=== PATIENT | female | born 1950 | race Caucasian/White ===

== ENCOUNTER 2019-01-15 00:07 | Outpatient (CLI) | payer BC ==
[2019-01-15 10:13] LABS: #Basophils 0.1 thou/uL (0.0-0.2); #Eosinphils 0.2 thou/uL (0.0-0.7); #Lymphocytes 1.9 thou/uL (1.20-3.40); #Monocytes 0.6 thou/uL (0.11-0.59); #Neutrophils 4.5 thou/uL (1.40-6.50); %Lymphocytes 25.7 % (21.0-51.0); %Monocytes 8.2 % (0.0-10.0); %Neutrophils 62.2 % (42.0-75.0); Hemoglobin 13.8 g/dL (12.0-16.0); Mean Corpuscular HGB CONC 33.6 g/dL (32.0-36.0); Mean Corpuscular Hemoglobin 29.7 pg (27.0-31.0); Mean Corpuscular Volume 88.4 fL (78.0-98.0); Mean Platelet Volume 8.2 fL (7.4-10.4); Platelet Count 230 thou/uL (130-400); RBC Distribution Width 12.4 % (11.5-14.5); Red Blood Cell (RBC) Count 4.66 mill/uL (4.20-5.40); White Blood Cell (WBC) Count 7.3 thou/uL (4.8-10.8)
[2019-01-15 10:30] LABS: Anion Gap 12 mmol/L (10-20); BUN (Urea Nitrogen) 12 mg/dL (9.8-20.1); Calc. Creatinine Clearance 0 mL/min (70-130); Calcium 9.6 mg/dL (7.8-10.44); Carbon Dioxide 28 mmol/L (23-31); Chloride 101 mmol/L (98-107); Estimated GFR-MDRD 55; Glucose 239 mg/dL (80-115); Sodium 137 mmol/L (136-145)
--- NOTE | 2019-01-16 21:06 | EKG ---
Test Reason : Blood Pressure : / mmHG Vent. Rate : 059 BPM Atrial Rate : 059 BPM P-R Int : 190 ms QRS Dur : 080 ms QT Int : 424 ms P-R-T Axes : 096 036 061 degrees QTc Int : 419 ms Sinus bradycardia Low voltage QRS Cannot rule out Anteroseptal infarct , age undetermined Abnormal ECG When compared with ECG of 20-DEC-2016 14:44, Minimal criteria for Anteroseptal infarct are now Present Nonspecific T wave abnormality now evident in Anterior leads Confirmed by DR. Lg PUENTES MD ([id number]) on 01/16/2019 9:06:30 PM Referred By: IERO Confirmed By:DR. Lg PUENTES MD
== END 2019-01-15 00:08 | disposition home or self-care (01) ==
LOC: LABBT 00:07
PROVIDERS: ATTEND Orthopaedic Surgery
DX: Z01.818 Encounter for other preprocedural examination (principal); M25.811 Other specified joint disorders, right shoulder
CPT/HCPCS: 80048; 85025; 93005; 93010

== ENCOUNTER 2019-01-17 05:53 | Day surgery (SDC) | payer BC ==
[2019-01-15 09:23] VITALS: BMI 36.0
[2019-01-17] MEDS ORDERED: Vancomycin HCl 1.5 GM in Sodium Chloride 0.9% 250 ML 300 ML IVPB SCH (06:30)
[2019-01-17] MEDS ORDERED: Fentanyl 100 MCG/2 ML VIAL ONE ×2 (06:40→07:12)
[2019-01-17] MEDS ORDERED: Midazolam HCl 2 mg/2 ml Vial ONE ×2 (06:40→07:12)
[2019-01-17] MEDS ORDERED: Ropivacaine 0.2% 550 ML 550 ML NERVE BLCK SCH (07:01)
[2019-01-17] MEDS ORDERED: Promethazine HCl 25 MG/ML VIAL IM PRN (07:01)
[2019-01-17] MEDS ORDERED: traMADol HCl 50 MG TAB PO PRN ×2 (07:01)
[2019-01-17] MEDS ORDERED: Ondansetron PF 4 MG/2 ML Vial IVP PRN (07:01)
[2019-01-17] MEDS ORDERED: Zolpidem Tartrate 5 MG TAB PO PRN (07:01)
[2019-01-17] MEDS ORDERED: Fentanyl 100 MCG/2 ML VIAL IV PRN (07:01)
[2019-01-17] MEDS ORDERED: HYDROcodone/Acetaminophen 5/325 mg Tablet PO PRN ×2 (07:01)
[2019-01-17] MEDS ORDERED: Clindamycin/D5W 900 mg/50 ml Premix Bag ONE (07:25)
--- NOTE | 2019-01-17 14:16 | OP ---
DATE OF PROCEDURE: 01/17/2019 PREOPERATIVE DIAGNOSES: Right shoulder painful Jessica, status post surgery, where she had some rotator cuff surgery, biceps surgery, and a distal clavicle excision. POSTOPERATIVE DIAGNOSES: Right shoulder painful Jessica, status post surgery, where she had some rotator cuff surgery, biceps surgery, and a distal clavicle excision. PROCEDURE PERFORMED: Right shoulder revision Jessica procedure. [employer] HELPER: Arnoldo Gorman PA-C ESTIMATED BLOOD LOSS: Minimal. COMPLICATIONS: None. ANESTHESIA: She did have a general anesthetic as well as a preoperative block. IMPLANTS: There were no implants. DISPOSITION: She did go to recovery in stable condition. INDICATIONS: Ms. Lamb had some previous shoulder surgery and unfortunately over the last 6 to 9 months started to have increasing pain over her right AC joint. She had, had previous distal clavicle excision. New x-ray showed her to have some regrowth of some bone and at this time, she opted to have a revision Jessica performed. DESCRIPTION OF PROCEDURE: After verbal consent forms were explained and signed, she was taken back to the operative room and at this time, she was given general anesthetic. Once the anesthesia was appropriate, she was rolled into the left lateral decubitus position with all bony problems well padded. Ly bag was inflated to hold her in this position and the arm was then suspended to 10 pounds in standard orthoscopic fashion. We then prepped and draped the right shoulder and upper extremity in a standard surgical fashion. At this time, a 15 blade was used to excise her previous incision, which had a keloid on the lateral portion of this. Once this was excised, we then used a Bovie to coagulate any brisk venous bleeding. We then got down to the underlying fascia and we took full-thickness fascial tissue to expose the distal clavicle, the AC joint, and the portion of the acromion at the joint. There was a very small spiky sharp piece of bone on the top of the acromion. This was rongeured down and smoothed. Inside the joint itself, there was a very hard piece of tissue, which was approximately a 6 to 7 mm in size. This was felt to have been some calcified remnant of the AC joint meniscus. This was removed and indeed it was calcified. Once the joint itself was cleaned out, we then placed Homans' anterior and posterior and removed just the very distal end of the clavicle, which had basically regrown to the shape of a "U." The anterior and posterior projections were removed sharply and the entire bone was then smoothed off and a small amount of bone wax was placed onto the bleeding cancellous bone. We then thoroughly irrigated out the wound. There was no longer any hard tissue. There was no more sharp tissue protruding and at this time, full-thickness periosteal flaps were closed using a deep PDS suture, 2-0 PDS and then Prolenes were used on skin. A sterile bulky dressing was then applied. She was awakened and taken to the recovery room in stable condition. All counts were correct at the end of the case. She received preoperative IV antibiotics. Job ID: [id number]
[2019-01-17] MEDS ORDERED: Ropivacaine 0.5% HCl/PF (150 MG/30 ML VIAL) ONE (14:52)
[2019-01-17] MEDS ORDERED: Ropivacaine 0.2% HCl/PF (40 MG/20 ML VIAL) ONE (14:52)
[2019-01-17] MEDS ORDERED: Lidocaine 1% PF 5 ML VIAL ONE (15:39)
[2019-01-17] MEDS ORDERED: Ondansetron PF 4 MG/2 ML Vial ONE (15:39)
[2019-01-17] MEDS ORDERED: PROPOFOL 200 MG/20 ML VIAL ONE (15:39)
[2019-01-17] MEDS ORDERED: diphenhydrAMINE 50 MG/ML VIAL ONE (15:39)
[2019-01-17] MEDS ORDERED: Rocuronium Bromide 10 MG/ML (10ML VIAL) ONE (15:39)
[2019-01-17] MEDS ORDERED: Dexamethasone 20 MG/5 ML VIAL ONE (15:39)
[2019-01-17] MEDS ORDERED: Glycopyrrolate 0.2 MG/ML 5 ML SYRINGE ONE (15:39)
== END 2019-01-17 12:45 | disposition home or self-care (01) ==
LOC: SDC 05:53
PROVIDERS: ATTEND Orthopaedic Surgery
PROC: 0PB90ZZ Excision of Right Clavicle, Open Approach (ICD-10-PCS; principal; 2019-01-17)
DX: M25.511 Pain in right shoulder (principal); M25.512 Pain in left shoulder; I10 Essential (primary) hypertension; E78.5 Hyperlipidemia, unspecified; E03.9 Hypothyroidism, unspecified; E11.9 Type 2 diabetes mellitus without complications; M19.90 Unspecified osteoarthritis, unspecified site; E06.3 Autoimmune thyroiditis; Z79.84 Long term (current) use of oral hypoglycemic drugs; Z79.899 Other long term (current) drug therapy; Z88.0 Allergy status to penicillin; Z88.6 Allergy status to analgesic agent; Z88.1 Allergy status to other antibiotic agents; Z88.8 Allergy status to other drugs, medicaments and biological substances; Z91.018 Allergy to other foods; Z91.02 Food additives allergy status; Z91.09 Other allergy status, other than to drugs and biological substances; Z98.890 Other specified postprocedural states
CPT/HCPCS: A4306; J1100; J1200; J2001; J2250; J2405; J2704; J2795; J3010; J3370; J3490; J7050

== ENCOUNTER 2020-08-01 13:43 | Outpatient (CLI) | payer BC ==
--- NOTE | 2020-08-01 14:42 | BD ---
Exam: DEXA Bone Density 08/01/20 INDICTIONS: Postmenopausal screening. Lumbar Spine: BMD (g/cm2) T-SCORE L1 1.264 2.5 L2 1.408 3.5 L3 1.296 1.9 L4 1.361 2.7 L1-L4 1.333 2.6 Femoral Neck: 0.631 -2.0 Total Femur: 0.976 0.1 Impression: 1. Bone mineral density of the femoral neck indicates osteopenia. 2. Bone mineral density of the lumbar spine within normal range. Ten year fracture risk: Major osteoporotic fracture: ----%. Hip fracture: 2%. POS: AGW
== END 2020-08-01 13:44 | disposition home or self-care (01) ==
LOC: BICMAMMO 13:43
PROVIDERS: ATTEND Internal Medicine Rheumatology
DX: M85.859 Other specified disorders of bone density and structure, unspecified thigh (principal)
CPT/HCPCS: 77080

== ENCOUNTER 2021-07-29 09:34 | Outpatient (CLI) | payer BC | END 2021-07-29 09:35 | disposition home or self-care (01) | LOC: BICRAD 09:34 | PROVIDERS: ATTEND Internal Medicine Rheumatology | DX: M46.1 Sacroiliitis, not elsewhere classified (principal); M54.50 Low back pain, unspecified; R06.02 Shortness of breath; M47.816 Spondylosis without myelopathy or radiculopathy, lumbar region; M89.9 Disorder of bone, unspecified | CPT/HCPCS: 71046; 72100; 72202 ==

== ENCOUNTER 2022-02-12 10:40 | Outpatient (CLI) | payer BC ==
[2022-02-12 12:05] LABS: #Eosinphils 0.2 10x3/uL (0.0-0.5); #Monocytes 0.6 10x3/uL (0.0-1.1); #Neutrophils 4.8 10x3/uL (1.5-8.4); %Basophils 0.5 % (0.0-2.0); %Eosinophils 2.3 % (0.0-6.0); %Lymphocytes 29.6 % (18.0-47.0); %Monocytes 7.4 % (0.0-10.0); %Neutrophils 59.7 % (40.0-75.0); Hemoglobin 14.2 g/dL (12.0-15.5); Mean Corpuscular HGB CONC 33.3 g/dL (32.0-36.0); Mean Corpuscular Hemoglobin 30.2 pg (27.0-33.0); Mean Corpuscular Volume 90.6 fl (81.6-98.3); Mean Platelet Volume 10.7 fl (7.4-10.4); Platelet Count 237 10x3/uL (150-450); White Blood Cell (WBC) Count 8.1 10x3/uL (3.5-10.5)
[2022-02-12 12:18] LABS: INR-International Normal Ratio 1.1; Prothrombin Time 11.5 sec (9.5-12.1)
[2022-02-12 12:29] LABS: Anion Gap 14 mmol/L (10-20); BUN (Urea Nitrogen) 16 mg/dL (9.8-20.1); Calc. Creatinine Clearance 0 mL/min (70-130); Calcium 9.9 mg/dL (7.8-10.44); Carbon Dioxide 28 mmol/L (23-31); Chloride 103 mmol/L (98-107); Glucose 135 mg/dL (83-110); Sodium 141 mmol/L (136-145)
[2022-02-12 22:54] LABS: SARS-CoV-2 PCR by NAA Not Detected (NotDetected)
== END 2022-02-12 10:41 | disposition home or self-care (01) ==
LOC: LABBT 10:40
PROVIDERS: ATTEND Orthopaedic Surgery
DX: Z01.812 Encounter for preprocedural laboratory examination (principal); S46.212A Strain of muscle, fascia and tendon of other parts of biceps, left arm, initial encounter; Z20.822 Contact with and (suspected) exposure to COVID-19
CPT/HCPCS: 80048; 85025; 85610; U0003; U0005

== ENCOUNTER 2022-02-17 07:11 | Day surgery (SDC) | payer BC ==
[2022-02-15 09:23] VITALS: BMI 35.2
[2022-02-17] MEDS ORDERED: Midazolam HCl 2 mg/2 ml Vial ONE (08:03)
[2022-02-17] MEDS ORDERED: Fentanyl 100 MCG/2 ML VIAL ONE (08:03)
[2022-02-17] MEDS ORDERED: Lidocaine 1% (PF) 30 ML VIAL ONE (09:40)
[2022-02-17] MEDS ORDERED: fentaNYL Citrate/PF 100 MCG/2 ML SYRINGE ONE (09:51)
[2022-02-17] MEDS ORDERED: Lidocaine 2% Jelly 5 ML TUBE ONE (09:51)
[2022-02-17] MEDS ORDERED: Clindamycin/D5W 900 mg/50 ml Premix Bag ONE (10:16)
[2022-02-17] MEDS ORDERED: PHENYLEPHRINE-NS 100 MCG/ML 10 ML SYRINGE ONE (10:27)
[2022-02-17] MEDS ORDERED: Bupivacaine HCl 0.5%/Epinephrine 1:200,000/PF 30 ml Vial ONE (10:27)
[2022-02-17] MEDS ORDERED: Rocuronium Bromide 10 MG/ML (10ML VIAL) ONE (10:27)
[2022-02-17] MEDS ORDERED: PROPOFOL 200 MG/20 ML VIAL ONE (10:27)
[2022-02-17] MEDS ORDERED: Dexamethasone 20 MG/5 ML VIAL ONE (10:27)
[2022-02-17] MEDS ORDERED: Ondansetron PF 4 MG/2 ML Vial ONE (10:27)
[2022-02-17] MEDS ORDERED: Glycopyrrolate 0.2 MG/ML 5 ML SYRINGE ONE (10:27)
[2022-02-17] MEDS ORDERED: Phenylephrine 10 MG/ML VIAL ONE (10:54)
[2022-02-17] MEDS ORDERED: Xylocaine 1% w/ Epi 1:100K 10 ML VIAL ONE (11:39)
== END 2022-02-17 14:56 | disposition home or self-care (01) ==
LOC: SDC 07:11
PROVIDERS: ATTEND Orthopaedic Surgery
PROC: 3E0T3BZ Introduction of Anesthetic Agent into Peripheral Nerves and Plexi, Percutaneous Approach (ICD-10-PCS; principal; 2022-02-17)
PROC: 0LM40ZZ Reattachment of Left Upper Arm Tendon, Open Approach (ICD-10-PCS; principal; 2022-02-17)
DX: S46.212A Strain of muscle, fascia and tendon of other parts of biceps, left arm, initial encounter (principal); M24.022 Loose body in left elbow; M19.122 Post-traumatic osteoarthritis, left elbow; F40.240 Claustrophobia; I10 Essential (primary) hypertension; E78.5 Hyperlipidemia, unspecified; E03.9 Hypothyroidism, unspecified; E11.9 Type 2 diabetes mellitus without complications; G89.29 Other chronic pain; M54.50 Low back pain, unspecified; Z79.01 Long term (current) use of anticoagulants; Z79.84 Long term (current) use of oral hypoglycemic drugs; Z79.890 Hormone replacement therapy; Z79.899 Other long term (current) drug therapy; Z88.0 Allergy status to penicillin; Z88.1 Allergy status to other antibiotic agents; Z88.6 Allergy status to analgesic agent; Z88.8 Allergy status to other drugs, medicaments and biological substances; Z91.018 Allergy to other foods; X50.0XXA Overexertion from strenuous movement or load, initial encounter
CPT/HCPCS: 76000; C1713; J1100; J2001; J2250; J2370; J2405; J2704; J3010; J3490

== ENCOUNTER 2022-04-27 10:58 | Outpatient (CLI) | payer BC | END 2022-04-27 10:59 | disposition home or self-care (01) | LOC: BICRAD 10:58 | PROVIDERS: ATTEND Internal Medicine Rheumatology | DX: M25.551 Pain in right hip (principal); M16.11 Unilateral primary osteoarthritis, right hip ==

== ENCOUNTER 2022-07-08 10:24 | Outpatient (CLI) | payer BC ==
[2022-07-08 12:03] LABS: #Basophils 0.1 10x3/uL (0.0-0.2); #Eosinphils 0.2 10x3/uL (0.0-0.5); #Monocytes 0.6 10x3/uL (0.0-1.1); #Neutrophils 4.5 10x3/uL (1.5-8.4); %Basophils 0.7 % (0.0-2.0); %Eosinophils 2.1 % (0.0-6.0); %Lymphocytes 27.3 % (18.0-47.0); %Monocytes 8.5 % (0.0-10.0); Hemoglobin 13.3 g/dL (12.0-15.5); Mean Corpuscular HGB CONC 33.5 g/dL (32.0-36.0); Mean Corpuscular Hemoglobin 30.4 pg (27.0-33.0); Mean Corpuscular Volume 90.8 fl (81.6-98.3); Mean Platelet Volume 10.9 fl (7.4-10.4); Platelet Count 205 10x3/uL (150-450); RBC Distribution Width 12.8 % (11.5-14.5); Red Blood Cell (RBC) Count 4.37 10x6/uL (3.90-5.03); White Blood Cell (WBC) Count 7.3 10x3/uL (3.5-10.5)
[2022-07-08 12:19] LABS: INR-International Normal Ratio 1.1; PTT 28.1 sec (22.0-33.0); Prothrombin Time 11.9 sec (9.5-12.1)
[2022-07-08 12:22] LABS: Anion Gap 12 mmol/L (10-20); BUN (Urea Nitrogen) 13 mg/dL (9.8-20.1); Calc. Creatinine Clearance 0 mL/min (70-130); Calcium 9.5 mg/dL (7.8-10.44); Carbon Dioxide 27 mmol/L (23-31); Chloride 105 mmol/L (98-107); Estimated GFR 67; Glucose 109 mg/dL (83-110); Sodium 140 mmol/L (136-145)
== END 2022-07-08 10:25 | disposition home or self-care (01) ==
LOC: LABBT 10:24
PROVIDERS: ATTEND Internal Medicine Cardiovascular Disease
DX: Z01.812 Encounter for preprocedural laboratory examination (principal); Z20.822 Contact with and (suspected) exposure to COVID-19
CPT/HCPCS: 80048; 85025; 85610; 85730; 87811

== ENCOUNTER 2022-07-13 06:01 | Day surgery (SDC) | payer BC ==
[2022-07-12 13:51] VITALS: BMI 35.2
[2022-07-13] MEDS ORDERED: Heparin 10,000 UNITS/ 10 ML VIAL ONE (06:39)
[2022-07-13] MEDS ORDERED: Protamine Sulfate 50 MG/5 ML VIAL ONE (06:39)
[2022-07-13] MEDS ORDERED: Heparin 25,000 units/D5W 500 ML ONE (06:39)
[2022-07-13] MEDS ORDERED: fentaNYL Citrate/PF 100 MCG/2 ML SYRINGE ONE ×2 (06:51→11:08)
[2022-07-13] MEDS ORDERED: Phenylephrine 10 MG/ML VIAL ONE (06:52)
[2022-07-13] MEDS ORDERED: PROPOFOL 200 MG/20 ML VIAL ONE (07:30)
[2022-07-13] MEDS ORDERED: Rocuronium Bromide 10 MG/ML (10ML VIAL) ONE (07:30)
[2022-07-13] MEDS ORDERED: Succinylcholine 200 MG/10 ml SYRINGE FS ONE (07:30)
[2022-07-13] MEDS ORDERED: ePHEDrine 50 MG/ML VIAL ONE (07:30)
[2022-07-13] MEDS ORDERED: SUGAMMADEX SODIUM 200 MG/2 ML VIAL ONE (09:08)
[2022-07-13] MEDS ORDERED: Ondansetron PF 4 MG/2 ML Vial ONE (11:08)
== END 2022-07-13 14:50 | disposition home or self-care (01) ==
LOC: SDC 06:01
PROVIDERS: ATTEND Internal Medicine Cardiovascular Disease
PROC: 02583ZZ Destruction of Conduction Mechanism, Percutaneous Approach (ICD-10-PCS; principal; 2022-07-13)
PROC: 4A0234Z Measurement of Cardiac Electrical Activity, Percutaneous Approach (ICD-10-PCS; principal; 2022-07-13)
PROC: B246ZZ4 Ultrasonography of Right and Left Heart, Transesophageal (ICD-10-PCS; principal; 2022-07-13)
PROC: 02K83ZZ Map Conduction Mechanism, Percutaneous Approach (ICD-10-PCS; principal; 2022-07-13)
PROC: 4A023FZ Measurement of Cardiac Rhythm, Percutaneous Approach (ICD-10-PCS; principal; 2022-07-13)
DX: I48.0 Paroxysmal atrial fibrillation (principal); I10 Essential (primary) hypertension; E78.5 Hyperlipidemia, unspecified; E03.9 Hypothyroidism, unspecified; E11.9 Type 2 diabetes mellitus without complications; Z79.01 Long term (current) use of anticoagulants; Z79.84 Long term (current) use of oral hypoglycemic drugs; Z79.890 Hormone replacement therapy; Z79.899 Other long term (current) drug therapy; Z88.0 Allergy status to penicillin; Z88.1 Allergy status to other antibiotic agents; Z88.6 Allergy status to analgesic agent; Z88.8 Allergy status to other drugs, medicaments and biological substances; Z91.018 Allergy to other foods; Z91.048 Other nonmedicinal substance allergy status
CPT/HCPCS: 85347; 93005; 93312; 93656; 93657; C1732; C1759; C1760; C1766; C1769; C1894; C2630; J1644; J2370; J2405; J2704; J2720; J3490

== ENCOUNTER 2023-09-27 12:01 | Outpatient (CLI) | payer BC | END 2023-09-27 12:02 | disposition home or self-care (01) | LOC: BICRAD 12:01 | PROVIDERS: ATTEND Internal Medicine | DX: M47.26 Other spondylosis with radiculopathy, lumbar region (principal) | CPT/HCPCS: 72100 ==

== ENCOUNTER 2023-10-03 09:10 | Outpatient (CLI) | payer BC | END 2023-10-03 09:11 | disposition home or self-care (01) | LOC: BICMAMMO 09:10 | PROVIDERS: ATTEND Internal Medicine | DX: N63.10 Unspecified lump in the right breast, unspecified quadrant (principal); N63.20 Unspecified lump in the left breast, unspecified quadrant | CPT/HCPCS: 76642; 77066; G0279 ==

== ENCOUNTER 2024-04-24 07:47 | Outpatient (CLI) | payer BC ==
[2024-04-24 09:21] LABS: #Basophils 0.05 10x3/uL (0.0-0.2); #Eosinphils 0.17 10x3/uL (0.0-0.5); #Monocytes 0.72 10x3/uL (0.0-1.1); #Neutrophils 5.21 10x3/uL (1.5-8.4); %Basophils 0.6 % (0.0-2.0); %Eosinophils 2.1 % (0.0-6.0); %Lymphocytes 24.3 % (18.0-47.0); %Monocytes 8.8 % (0.0-10.0); %Neutrophils 63.8 % (40.0-75.0); Hemoglobin 14.9 g/dL (12.0-15.5); Mean Corpuscular HGB CONC 33.9 g/dL (32.0-36.0); Mean Corpuscular Hemoglobin 31.2 pg (27.0-33.0); Mean Corpuscular Volume 92.2 fL (81.6-98.3); Mean Platelet Volume 10.6 fL (7.4-10.4); Platelet Count 218 10x3/uL (150-450); RBC Distribution Width 12.9 % (11.5-14.5); Red Blood Cell (RBC) Count 4.77 10x6/uL (3.90-5.03); White Blood Cell (WBC) Count 8.2 10x3/uL (3.5-10.5)
[2024-04-24 09:28] LABS: Prothrombin Time 11.2 sec (9.5-12.1)
[2024-04-24 09:33] LABS: Anion Gap 12 mmol/L (10-20); BUN (Urea Nitrogen) 14 mg/dL (9.8-20.1); Calc. Creatinine Clearance 0 mL/min (70-130); Calcium 10.2 mg/dL (7.8-10.44); Carbon Dioxide 28 mmol/L (23-31); Chloride 102 mmol/L (98-107); Estimated GFR 62; Glucose 149 mg/dL (83-110); Potassium 4.1 mmol/L (3.5-5.1); Sodium 138 mmol/L (136-145)
== END 2024-04-24 07:48 | disposition home or self-care (01) ==
LOC: LABBT 07:47
PROVIDERS: ATTEND Orthopaedic Surgery
DX: Z01.818 Encounter for other preprocedural examination (principal); M16.11 Unilateral primary osteoarthritis, right hip
CPT/HCPCS: 80048; 85025; 85610; 87081; 93005; 93010

== ENCOUNTER 2024-05-02 05:20 | Inpatient (IN) | payer BC ==
[2024-04-24 08:38] VITALS: BMI 32.5
[2024-05-02] MEDS ORDERED: Tranexamic Acid 1,000 MG/10 ML VIAL ONE (05:46)
[2024-05-02] MEDS ORDERED: CEFAZOLIN 2 GM VIAL ONE (05:46)
[2024-05-02] MEDS ORDERED: Sodium Chloride 0.9% 200 ML ONE (05:46)
[2024-05-02] MEDS ORDERED: Lidocaine 1% MPF 2 ML VIAL ONE (05:46)
[2024-05-02] MEDS ORDERED: Vancomycin (BATCH) 1.5 GM/300 ML BAG ONE (05:47)
[2024-05-02] MEDS ORDERED: Rocuronium Bromide 10 MG/ML (10ML VIAL) ONE (06:28)
[2024-05-02] MEDS ORDERED: Ondansetron PF 4 MG/2 ML Vial ONE (06:28)
[2024-05-02] MEDS ORDERED: Dexamethasone 20 MG/5 ML VIAL ONE (06:28)
[2024-05-02] MEDS ORDERED: PROPOFOL 20 ML ONE (06:28)
[2024-05-02] MEDS ORDERED: Lidocaine 1% PF 5 ML VIAL ONE (06:28)
[2024-05-02] MEDS ORDERED: fentaNYL PF 100 MCG/2 ML SYRINGE ONE (06:28)
[2024-05-02] MEDS ORDERED: SUGAMMADEX SODIUM 200 MG/2 ML VIAL ONE (06:29)
[2024-05-02] MEDS ORDERED: Midazolam HCl 2 mg/2 ml Vial ONE (06:51)
[2024-05-02] MEDS ORDERED: Lidocaine 1.5% w/Epi 1:200K 30 ML VIAL (Epid Use) ONE (07:04)
[2024-05-02] MEDS ORDERED: Ropivacaine 0.2% HCl/PF 20 ML ONE (07:40)
[2024-05-02] MEDS ORDERED: Moisturizing Cream (Eucerin) 113 GM JAR TOP PRN (08:00)
[2024-05-02] MEDS ORDERED: Naloxone HCl 0.4 mg/ml Vial IVP PRN (08:00)
[2024-05-02] MEDS ORDERED: diphenhydrAMINE 25 MG CAP PO PRN ×2 (08:00→13:18)
[2024-05-02] MEDS ORDERED: Bupivacaine 0.25% 10 ML VIAL EPIDURAL PRN (08:00)
[2024-05-02] MEDS ORDERED: HYDROcodone/Acetaminophen 5/325 mg Tablet PO PRN (08:00)
[2024-05-02] MEDS ORDERED: Naloxone HCl 0.4 mg/ml Vial IV PRN (08:00)
[2024-05-02] MEDS ORDERED: diphenhydrAMINE 50 MG/ML VIAL IM PRN (08:00)
[2024-05-02] MEDS ORDERED: Ketorolac Tromethamine 30 MG (1 mL) VIAL IVP PRN (08:00)
[2024-05-02] MEDS ORDERED: Promethazine HCl 25 MG SUPP PR PRN (08:00)
[2024-05-02] MEDS ORDERED: diphenhydrAMINE 50 MG/ML VIAL IVP PRN (08:00)
[2024-05-02] MEDS ORDERED: Promethazine HCl 25 MG/ML VIAL IM PRN ×3 (08:00→13:18)
[2024-05-02] MEDS ORDERED: Ondansetron PF 4 MG/2 ML Vial IVP PRN (08:00)
[2024-05-02] MEDS ORDERED: Zolpidem Tartrate 5 MG TAB PO PRN ×2 (08:00→13:18)
[2024-05-02] MEDS ORDERED: PHENYLEPHRINE-NS 100 MCG/ML 10 ML SYRINGE ONE (08:04)
[2024-05-02] MEDS ORDERED: ePHEDrine Sulfate 50 MG/10 ML VIAL ONE (08:11)
[2024-05-02] MEDS ORDERED: Glycopyrrolate 0.2 MG/ML 5 ML SYRINGE ONE (08:40)
[2024-05-02] MEDS ORDERED: fentaNYL 50 mcg/mL 1 mL Vial ONE ×2 (10:09→10:35)
[2024-05-02] MEDS ORDERED: Promethazine HCl 25 MG/ML VIAL ONE (10:10)
[2024-05-02] MEDS ORDERED: Non-Formulary Medication 1 EACH PO PRN (11:05)
[2024-05-02] MEDS ORDERED: Promethazine HCl 25 MG/ML VIAL IVPB PRN (11:15)
[2024-05-02] MEDS ORDERED: Ondansetron HCl/PF 4 MG/2 ML Vial IVP PRN (11:15)
[2024-05-02] MEDS ORDERED: OZEMPIC 1 MG SC SCH (12:30)
[2024-05-02] MEDS ORDERED: Acetaminophen 325 MG TAB PO PRN (13:18)
[2024-05-02] MEDS: CEFAZOLIN 2 GM in Sodium Chloride 0.9% 100 ML IVPB SCH (15:08)
[2024-05-02] MEDS: Artificial Tear Ophth Sol 15 ML BOT R EYE PRN (15:08)
[2024-05-02] MEDS: HYDROcodone/Acetaminophen 5/325 mg Tablet PO PRN (15:09)
[2024-05-02] MEDS: Mupirocin 2% Ointment 22 GM Tube TOP SCH ×2 (16:26→21:26)
[2024-05-02] MEDS: Carvedilol 6.25 MG TAB PO SCH (21:29)
[2024-05-02] MEDS: Atorvastatin Calcium 10 MG TAB PO SCH (21:31)
[2024-05-02] MEDS: Lisinopril 20 MG TAB PO SCH (21:32)
[2024-05-02] MEDS: sulfaSALAzine 500 MG TAB PO SCH (21:34)
[2024-05-03] MEDS: FENTANYL 500 MCG/10 ML VIAL 500 MCG, Bupivacaine 0.75% 10 ML in Sodium Chloride 0.9% 80 ML EPIDURAL SCH (02:54)
[2024-05-03] MEDS: Levothyroxine Sodium 100 MCG TAB PO SCH (06:09)
[2024-05-03 07:04] LABS: Hemoglobin 11.7 g/dL (12.0-16.0); Mean Corpuscular HGB CONC 32.5 g/dL (32.0-36.0); Mean Corpuscular Volume 95.2 fL (78.0-98.0); Mean Platelet Volume 10.7 fL (7.4-10.4); Platelet Count 182 10x3/uL (130-400); RBC Distribution Width 13.2 % (11.5-14.5); Red Blood Cell (RBC) Count 3.78 mill/uL (4.20-5.40)
[2024-05-03] MEDS ORDERED: EFINACONAZOLE TOP SCH (09:00)
[2024-05-03] MEDS ORDERED: TAZAROTENE TOP SCH (09:00)
[2024-05-03] MEDS: HYDROcodone/Acetaminophen 10/325 mg Tablet PO PRN (14:09)
[2024-05-03] MEDS: Amlodipine 5 MG TAB PO SCH (14:11)
[2024-05-03] MEDS: Ferrous Gluconate 324 MG TAB PO SCH (14:11)
[2024-05-03] MEDS: Multivitamin W/ Minerals 1 TAB PO SCH (14:12)
[2024-05-03] MEDS: Calcium Carbonate 600 MG TAB PO SCH (14:12)
[2024-05-03] MEDS: Liothyronine Sodium 5 MCG TAB PO SCH (14:12)
[2024-05-03] MEDS: Hydrochlorothiazide 25 MG TAB PO SCH (14:12)
[2024-05-03] MEDS: Senokot S 8.6-50 MG TAB PO SCH (14:13)
[2024-05-03] MEDS: Empagliflozin 25 MG TAB PO SCH (14:13)
[2024-05-03] MEDS: traMADol HCl 50 MG TAB PO PRN (16:01)
[2024-05-04 07:48] LABS: Hematocrit 34.5 % (36.0-47.0); Hemoglobin 11.3 g/dL (12.0-16.0); Mean Corpuscular HGB CONC 32.8 g/dL (32.0-36.0); Mean Corpuscular Hemoglobin 31.3 pg (27.0-31.0); Mean Corpuscular Volume 95.6 fL (78.0-98.0); Mean Platelet Volume 10.9 fL (7.4-10.4); Platelet Count 150 10x3/uL (130-400); RBC Distribution Width 13.2 % (11.5-14.5); Red Blood Cell (RBC) Count 3.61 mill/uL (4.20-5.40)
[2024-05-04] MEDS: Cholecalciferol 1,000 UNITS (25 MCG) TAB PO SCH (08:02)
[2024-05-04] MEDS: traMADol HCl 50 MG TAB PO PRN (08:16)
[2024-05-05 06:13] LABS: Hematocrit 34.1 % (36.0-47.0); Hemoglobin 11.5 g/dL (12.0-16.0); Mean Corpuscular HGB CONC 33.7 g/dL (32.0-36.0); Mean Corpuscular Hemoglobin 30.5 pg (27.0-31.0); Mean Corpuscular Volume 90.5 fL (78.0-98.0); Mean Platelet Volume 10.7 fL (7.4-10.4); Platelet Count 155 10x3/uL (130-400); RBC Distribution Width 12.7 % (11.5-14.5); Red Blood Cell (RBC) Count 3.77 mill/uL (4.20-5.40)
[2024-05-05] MEDS: Ondansetron PF 4 MG/2 ML Vial IVP PRN (11:37)
[2024-05-05] MEDS: Ondansetron ODT 4 MG TAB PO PRN (15:02)
[2024-05-05] MEDS: Rivaroxaban 10 MG TAB PO SCH (18:00)
[2024-05-05] MEDS: HYDROcodone/Acetaminophen 10/325 mg Tablet PO PRN (19:31)
[2024-05-05] MEDS ORDERED: Non-Formulary Item 1 EACH (Carvedilol [Coreg] 12.5 MG Tablet) PO SCH (21:00)
[2024-05-05] MEDS ORDERED: Lisinopril 20 MG TAB PO SCH (21:00)
[2024-05-06] MEDS ORDERED: Amlodipine 5 MG TAB PO SCH (09:00)
[2024-05-07] MEDS: Aspirin 81 mg Enteric Coated Tablet PO SCH (09:26)
[2024-05-07 12:48] VITALS: BP 117/60; TEMP 97.8
== END 2024-05-07 12:20 | disposition home or self-care (01) | DRG 470 ==
LOC: SDC 05:20 → SURG B 07:11 → OBSVTOIN 05-04 11:25
PROVIDERS: ADMIT Orthopaedic Surgery; ATTEND Orthopaedic Surgery
PROC: 0SR903Z Replacement of Right Hip Joint with Ceramic Synthetic Substitute, Open Approach (ICD-10-PCS; principal; 2024-05-02)
PROC: 5A09357 Assistance with Respiratory Ventilation, Less than 24 Consecutive Hours, Continuous Positive Airway Pressure (ICD-10-PCS; 2024-05-03)
DX: M16.11 Unilateral primary osteoarthritis, right hip (principal); E78.5 Hyperlipidemia, unspecified; E11.9 Type 2 diabetes mellitus without complications; I10 Essential (primary) hypertension; H40.9 Unspecified glaucoma; I48.91 Unspecified atrial fibrillation; Z90.710 Acquired absence of both cervix and uterus; Z98.890 Other specified postprocedural states; Z91.048 Other nonmedicinal substance allergy status; Z88.0 Allergy status to penicillin; Z88.8 Allergy status to other drugs, medicaments and biological substances; Z98.41 Cataract extraction status, right eye; Z98.42 Cataract extraction status, left eye; E03.9 Hypothyroidism, unspecified; Z79.899 Other long term (current) drug therapy
CPT/HCPCS: 36415; 36416; 72170; 77014; 77290; 85027; 96365; 96375; 96376; C1713; C1776; G0378; G0379; J1100; J2001; J2250; J2405; J2550; J2704; J2795; J3010; J3370; J3490; Q0162

== ENCOUNTER 2024-08-20 09:33 | Outpatient (CLI) | payer BC | END 2024-08-20 09:34 | disposition home or self-care (01) | LOC: BICMAMMO 09:33 | PROVIDERS: ATTEND Internal Medicine Rheumatology | DX: M85.852 Other specified disorders of bone density and structure, left thigh (principal); L40.59 Other psoriatic arthropathy | CPT/HCPCS: 77080 ==